=== PATIENT | male | born 1945 | race Caucasian/White ===

== ENCOUNTER 2021-05-17 06:40 | Day surgery (SDC) | payer BC, SELFPAY ==
[~2021-05-17] VITALS: Ht 182.9 cm; Wt 92.1 kg
[~2021-05-17 06:40] MED LIST: AMLO5TAB4 PO; FURO-150 PO; LISI40TA13 PO; METF-518 PO; METO25TA3 PO; MORP30TA PO; OXYC20TA55 PO; POTA-197 PO; SIMV20TA2 PO
[2021-05-17] MEDS ORDERED: CEFTRIAXONE SOD 1 GM/ D5W 50 ML IV ONE ×2 (07:15)
[2021-05-17] MEDS ORDERED: NS IRRIG SOLN 1000 ML IR ONE (08:00)
[2021-05-17] MEDS ORDERED: ONDANSETRON HCL 4 MG/2 ML VIAL IVP ONE (08:00)
[2021-05-17] MEDS ORDERED: LIDOCAINE JELLY 5 ML TUBE TP ONE (08:00)
[2021-05-17] MEDS ORDERED: GLYCOPYRROLATE 0.2 MG/ML VIAL IJ ONE (08:00)
[2021-05-17] MEDS ORDERED: fentaNYL CITRATE 250 MCG/5 ML AMP IV ONE (08:00)
[2021-05-17] MEDS ORDERED: SEVOFLURANE 15 MIN GAS INH ONE (08:00)
[2021-05-17] MEDS ORDERED: NS 1000 ML IV.SOLN IV ONE ×2 (08:00)
[2021-05-17] MEDS ORDERED: NACL 0.9% 1,000 ML IV SCH (08:45)
[2021-05-17] MEDS ORDERED: ONDANSETRON HCL 4 MG/2 ML VIAL IVP PRN (08:45)
[2021-05-17] MEDS ORDERED: HYDROmorphone 1 MG/ML INJ. CARTRIDGE IVP PRN (08:45)
[2021-05-17] MEDS ORDERED: HYDROmorphone 1 MG/ML INJ. CARTRIDGE ONE ×3 (08:59→09:39)
[2021-05-17] MEDS: HYDROmorphone 2 MG/ML VIAL IVP PRN ×2 (09:18→09:43)
[2021-05-17] MEDS ORDERED: ONDANSETRON HCL 4 MG/2 ML VIAL ONE (10:48)
[2021-05-17] MEDS ORDERED: PROCHLORPERAZINE EDISYLATE 10 MG/2 ML VIAL IVP ONE (11:45)
[2021-05-17 12:51] VITALS: BP_SYST 129
== END 2021-05-17 12:25 | disposition home or self-care (01) ==
LOC: SDS 06:40
PROVIDERS: ATTEND Urology
DX: T83.192A Other mechanical complication of indwelling ureteral stent, initial encounter (principal); C78.5 Secondary malignant neoplasm of large intestine and rectum; N36.8 Other specified disorders of urethra; C80.1 Malignant (primary) neoplasm, unspecified; Y82.8 Other medical devices associated with adverse incidents
CPT/HCPCS: 36415; 52332; 82948; 82962; 87426; 88300; 93005; C1758; J0696; J0780; J1170; J2405; J7060; Q9967; 76000; J3010; J3490; J7030

== ENCOUNTER 2021-09-30 18:31 | Inpatient (IN) | payer BC ==
[~2021-09-30] VITALS: Ht 182.9 cm; Wt 86.2 kg
[2021-09-30 19:12] VITALS: BP_SYST 129
[2021-09-30 20:50] LABS: BASOPHILS % (AUTO) 0.5 % (0.0-2.0); EOSINOPHILS # (AUTO) 0.2 K/uL (0.0-0.4); HEMATOCRIT 26.1 % (36-54); HEMOGLOBIN 8.8 g/dL (14.0-18.0); LYMPHOCYTES # (AUTO) 0.5 K/uL (1.0-5.5); LYMPHOCYTES % (AUTO) 12.2 % (20.5-51.5); MEAN CORPUSCULAR HEMOGLOBIN 29 pg (27-31); MEAN CORPUSCULAR HGB CONC 34 % (32-36); MEAN CORPUSCULAR VOLUME 86 fL (79.0-98.0); MONOCYTES # (AUTO) 0.3 K/uL (0.0-1.0); MONOCYTES % (AUTO) 7.7 % (1.7-9.3); NEUTROPHILS % (AUTO) 74.6 % (40.0-70.0); RED BLOOD CELL COUNT(AUTO) 3.05 MIL/uL (4.2-6.2); RED CELL DISTRIBUTION WIDTH 14.9 % (9.0-15.0)
[2021-09-30 21:08] LABS: ANION GAP 6 (5-15); CALCIUM 8.1 mg/dL (8.4-11.0); CHLORIDE 105 mmol/L (98-107); CREATININE 2.12 mg/dL (0.55-1.30); GLUCOSE 105 mg/dL (70-99); POTASSIUM 4.8 mmol/L (3.5-5.1); SODIUM SERUM 139 mmol/L (136-145); UREA NITROGEN, BLOOD 39 mg/dL (8-21)
[2021-09-30 21:14] LABS: ALANINE AMINOTRANSFERASE 10 U/L (12-78); ALBUMIN 3.3 g/dL (3.4-4.8); ASPARTATE AMINOTRANSFERASE 19 U/L (10-37); TOTAL BILIRUBIN 0.2 mg/dL (0.0-1.0)
[2021-09-30 22:39] LABS: PLATELET COUNT (AUTO) 90 K/uL (130-430)
[2021-09-30] MEDS ORDERED: ACETAMINOPHEN 325 MG TABLET PO PRN (23:30)
[2021-09-30] MEDS ORDERED: ONDANSETRON HCL 4 MG/2 ML VIAL IVP PRN (23:30)
[2021-09-30] MEDS ORDERED: ALBUTEROL SULFATE 0.083% 2.5 MG/3 ML VIAL.NEB INH PRN (23:30)
[2021-09-30 23:59] LABS: BILIRUBIN,URINE NEGATIVE (NEGATIVE); BLOOD, URINE 3+ (NEGATIVE); CLARITY/URINE CLEAR (CLEAR); COLOR,URINE YELLOW (YELLOW); GLUCOSE,URINE NEGATIVE (NEGATIVE); KETONES,URINE NEGATIVE (NEGATIVE); LEUKOCYTE ESTERASE ,URINE 2+ (NEGATIVE); NITRITE, URINE NEGATIVE (NEGATIVE); PROTEIN URINE 1+ (NEGATIVE); UROBILINOGEN,URINE 0.2 (0.2-1.0)
[2021-10-01] MEDS: PANTOPRAZOLE SODIUM 40 MG/VIAL (PROTONIX) IVP SCH ×2 (00:09→08:52)
[2021-10-01] MEDS: MORPHINE 2 MG/ML INJ. SYRINGE IVP PRN ×3 (00:10→10:43)
[2021-10-01 00:12] LABS: BACTERIA,URINE FEW /HPF (None Seen); RBC,URINE 20-50 /HPF (0-3)
[2021-10-01] MEDS ORDERED: MORPHINE 4 MG INJ. 4 MG/ML VIAL IVP ONE (00:15)
[2021-10-01 02:41] VITALS: BP_SYST 102
[2021-10-01 04:26] VITALS: BP_SYST 102
[2021-10-01 07:30] LABS: BASOPHILS % (AUTO) 0.7 % (0.0-2.0); EOSINOPHILS # (AUTO) 0.2 K/uL (0.0-0.4); EOSINOPHILS % (AUTO) 6.6 % (0.0-4.0); HEMATOCRIT 23.6 % (36-54); HEMOGLOBIN 7.9 g/dL (14.0-18.0); LYMPHOCYTES # (AUTO) 0.6 K/uL (1.0-5.5); LYMPHOCYTES % (AUTO) 19.7 % (20.5-51.5); MEAN CORPUSCULAR HEMOGLOBIN 29 pg (27-31); MEAN CORPUSCULAR HGB CONC 33 % (32-36); MEAN CORPUSCULAR VOLUME 86 fL (79.0-98.0); MONOCYTES # (AUTO) 0.4 K/uL (0.0-1.0); MONOCYTES % (AUTO) 13.7 % (1.7-9.3); NEUTROPHILS # (AUTO) 1.7 K/uL (1.8-7.7); NEUTROPHILS % (AUTO) 59.3 % (40.0-70.0); PLATELET COUNT (AUTO) 77 K/uL (130-430); RED BLOOD CELL COUNT(AUTO) 2.75 MIL/uL (4.2-6.2); RED CELL DISTRIBUTION WIDTH 14.6 % (9.0-15.0); WHITE BLOOD COUNT (AUTO) 2.9 K/uL (4.8-10.8)
[2021-10-01 08:00] VITALS: BP_SYST 131
[2021-10-01 08:29] LABS: ALANINE AMINOTRANSFERASE 10 U/L (12-78); ALBUMIN 2.8 g/dL (3.4-4.8); ANION GAP 5 (5-15); ASPARTATE AMINOTRANSFERASE 18 U/L (10-37); CALCIUM 8.1 mg/dL (8.4-11.0); CHLORIDE 108 mmol/L (98-107); CREATININE 1.96 mg/dL (0.55-1.30); GLUCOSE 88 mg/dL (70-99); POTASSIUM 4.9 mmol/L (3.5-5.1); SODIUM SERUM 141 mmol/L (136-145); TOTAL BILIRUBIN 0.2 mg/dL (0.0-1.0); UREA NITROGEN, BLOOD 36 mg/dL (8-21)
[2021-10-01] MEDS ORDERED: POLYETHYLENE GLYCOL 3350, 17 GM/ POWD.PACK PO ONE (09:15)
[2021-10-01] MEDS ORDERED: INSULIN REGULAR, HUMAN 100 UNITS/ML, 10 ML VIAL (humuLIN R) SUBCUT PRN (10:15)
[2021-10-01] MEDS ORDERED: DEXTROSE 50% JECT 50 ML DISP.SYRIN IVP PRN (10:15)
[2021-10-01 11:27] VITALS: BP_SYST 114
[2021-10-02] MEDS ORDERED: POLYETHYLENE GLYCOL 3350, 17 GM/ POWD.PACK PO SCH (09:00)
== END 2021-10-01 14:45 | disposition left against medical advice (07) | DRG 378 ==
LOC: SED 18:31 → SMU 23:28
PROVIDERS: ADMIT Internal Medicine Hospice and Palliative Medicine; ATTEND Internal Medicine Hospice and Palliative Medicine
DX: K92.1 Melena (principal); C18.9 Malignant neoplasm of colon, unspecified; I10 Essential (primary) hypertension; E11.9 Type 2 diabetes mellitus without complications; Z20.822 Contact with and (suspected) exposure to COVID-19; D64.9 Anemia, unspecified; Z90.49 Acquired absence of other specified parts of digestive tract; Z79.899 Other long term (current) drug therapy
CPT/HCPCS: 36415; 76376; 80053; 81000; 82962; 85025; 87086; 96374; 99285; C9113; J1815; J2270; J2405

== ENCOUNTER 2021-12-07 10:06 | Day surgery (SDC) | payer BC ==
[~2021-12-07] VITALS: Ht 182.9 cm; Wt 85.7 kg
[~2021-12-07 10:06] MED LIST changes: +CEFTRIAXONE SOD 1 GM/ D5W 50 ML IV ONE; +SIMV-343 PO; -SIMV20TA2 PO
[2021-12-07 10:42] LABS: BASOPHILS % (AUTO) 0.7 % (0.0-2.0); EOSINOPHILS # (AUTO) 0.2 K/uL (0.0-0.4); EOSINOPHILS % (AUTO) 4.6 % (0.0-4.0); HEMATOCRIT 28.9 % (36-54); HEMOGLOBIN 9.8 g/dL (14.0-18.0); LYMPHOCYTES # (AUTO) 0.7 K/uL (1.0-5.5); LYMPHOCYTES % (AUTO) 17.7 % (20.5-51.5); MEAN CORPUSCULAR HEMOGLOBIN 29 pg (27-31); MEAN CORPUSCULAR HGB CONC 34 % (32-36); MEAN CORPUSCULAR VOLUME 86 fL (79.0-98.0); MONOCYTES # (AUTO) 0.5 K/uL (0.0-1.0); MONOCYTES % (AUTO) 13.1 % (1.7-9.3); NEUTROPHILS # (AUTO) 2.6 K/uL (1.8-7.7); NEUTROPHILS % (AUTO) 63.9 % (40.0-70.0); PLATELET COUNT (AUTO) 93 K/uL (130-430); RED BLOOD CELL COUNT(AUTO) 3.37 MIL/uL (4.2-6.2); RED CELL DISTRIBUTION WIDTH 16.1 % (9.0-15.0); WHITE BLOOD COUNT (AUTO) 4.1 K/uL (4.8-10.8)
[2021-12-07 10:54] LABS: BILIRUBIN,URINE NEGATIVE (NEGATIVE); BLOOD, URINE 2+ (NEGATIVE); COLOR,URINE YELLOW (YELLOW); GLUCOSE,URINE NEGATIVE (NEGATIVE); KETONES,URINE NEGATIVE (NEGATIVE); LEUKOCYTE ESTERASE ,URINE 2+ (NEGATIVE); NITRITE, URINE NEGATIVE (NEGATIVE); PROTEIN URINE NEGATIVE (NEGATIVE); UROBILINOGEN,URINE 0.2 (0.2-1.0)
[2021-12-07 10:55] LABS: ANION GAP 8 (5-15); CALCIUM 8.9 mg/dL (8.4-11.0); CHLORIDE 106 mmol/L (98-107); CREATININE 1.66 mg/dL (0.55-1.30); GLUCOSE 123 mg/dL (70-99); POTASSIUM 3.9 mmol/L (3.5-5.1); SODIUM SERUM 142 mmol/L (136-145); UREA NITROGEN, BLOOD 24 mg/dL (8-21)
[2021-12-07 11:01] LABS: INR 1.1 (0.80-1.20); PROTHROMBIN TIME 11.2 SECS (9.5-12.5)
[2021-12-07 11:12] LABS: CLARITY/URINE HAZY (CLEAR)
[2021-12-07 12:01] LABS: BACTERIA,URINE MODERATE /HPF (None Seen)
[2021-12-07] MEDS ORDERED: KETOROLAC TROMETHAMINE 30 MG VIAL IVP PRN (12:45)
[2021-12-07] MEDS ORDERED: MORPHINE 4 MG INJ. 4 MG/ML VIAL IVP PRN (12:45)
[2021-12-07] MEDS ORDERED: ONDANSETRON HCL 4 MG/2 ML VIAL IVP PRN (12:45)
[2021-12-07] MEDS ORDERED: IBUPROFEN 400 MG TABLET PO ONE (12:45)
[2021-12-07] MEDS ORDERED: LR 1,000 ML IV.SOLN IV ONE (13:15)
[2021-12-07] MEDS ORDERED: ETOMIDATE 20 MG/ 10 ML VIAL (AMIDATE) ONE (13:15)
[2021-12-07] MEDS ORDERED: WATER FOR IRRIGATION,STERILE 3,000 ML IRRIG.SOLN IR ONE (13:15)
[2021-12-07] MEDS ORDERED: ONDANSETRON HCL 4 MG/2 ML VIAL ONE ×2 (13:15→13:37)
[2021-12-07] MEDS ORDERED: SEVOFLURANE 15 MIN GAS INH ONE (13:15)
[2021-12-07] MEDS ORDERED: NS IRRIG SOLN 5000 ML IR ONE (13:15)
[2021-12-07] MEDS ORDERED: KETOROLAC TROMETHAMINE 30 MG VIAL ONE (13:23)
[2021-12-07] MEDS: MORPHINE 4 MG INJ. 4 MG/ML VIAL IVP PRN ×2 (13:41→13:58)
[2021-12-07] MEDS ORDERED: MORPHINE 2 MG/ML INJ. SYRINGE ONE ×2 (13:41→13:59)
[2021-12-07 16:18] VITALS: BP_SYST 107
== END 2021-12-07 15:50 | disposition home or self-care (01) ==
LOC: SDS 10:06 → SMU 10:06 → SDS 15:50
PROVIDERS: ATTEND Urology
DX: N13.30 Unspecified hydronephrosis (principal); I10 Essential (primary) hypertension; E11.9 Type 2 diabetes mellitus without complications; Z85.038 Personal history of other malignant neoplasm of large intestine; Z79.01 Long term (current) use of anticoagulants; Z95.0 Presence of cardiac pacemaker; Z20.822 Contact with and (suspected) exposure to COVID-19
CPT/HCPCS: 52332; 80048; 81000; 82962; 85025; 85610; 85730; 87086; 87186; 36415; 87426; J0696; J3490; J1885; J2405; J2270; Q9967; J7060; J7120; C1758; C2625; C1769; 76000